=== PATIENT | female | born 1955 | race Caucasian/White ===

== ENCOUNTER 2024-09-28 22:02 | Observation (INO) | payer MEDICARE ==
[~2024-09-28] VITALS: Ht 162.6 cm; Wt 61.2 kg
[~2024-09-28 22:02] MED LIST: ASPI81CH PO; Budeprion Xl300 MG PO; C COMPLEX1000 M1 PO; ESCI20 PO; FENO145 PO; FISH OIL 1,2001 EAC7 PO; LEVSOD25 PO; LISI5 PO; LYLLANA TOP; MELO7.5 PO; METHYLPHENIDATE10 M4 PO; MONT10T PO; NUJO60 ML TOP; PROG100 PO; SYMBICORT 160-4.6 GM INH; TRAZ50 PO; Toviaz8 MG PO; VITAMIN B125000 MC1 PO; VITAMIN D325 MC3 PO; Ventolin/Prove6.7 GM INH
[2024-09-28 22:35] LABS: BASOPHILS ABSOLUTE AUTO 0.02 K/mm3 (0.00-0.23); BASOPHILS PERCENT AUTO 0 % (0-2); EOSINOPHILS ABSOLUTE AUTO 0.04 K/mm3 (0.00-0.68); EOSINOPHILS PERCENT AUTO 1 % (0-6); Hematocrit 40.9 % (33.0-51.0); Hemoglobin 13.4 g/dL (11.5-16.0); IMMATURE GRAN ABSOLUTE AUTO 0.02 K/mm3 (0.00-0.10); IMMATURE GRAN PERCENT AUTO 0 % (0-1); LYMPHOCYTES ABSOLUTE AUTO 0.74 K/mm3 (0.84-5.20); LYMPHOCYTES PERCENT AUTO 10 % (21-46); MONOCYTES ABSOLUTE AUTO 0.67 K/mm3 (0.16-1.47); MONOCYTES PERCENT AUTO 9 % (4-13); Mean Corpuscular HGB 29.5 pg (26.0-34.0); Mean Corpuscular HGB Conc 32.8 g/dL (31.5-36.5); Mean Corpuscular Volume 90 fL (80-100); Mean Platelet Volume 12.1 fL (9.1-12.4); NEUTROPHILS ABSOLUTE AUTO 6.09 K/mm3 (1.96-9.15); NEUTROPHILS PERCENT AUTO 80 % (41-73); Platelet Count 176 K/mm3 (150-400); RDW Coefficient Variation 14.4 % (11.7-14.2); RDW Standard Deviation 47.6 fL (35.1-46.3); Red Blood Cell Count 4.55 M/mm3 (3.80-5.20); White Blood Cell Count 7.58 K/mm3 (4.00-11.30)
[2024-09-28 22:48] LABS: Albumin, Blood 3.3 g/dL (3.4-5.0); Albumin/Globulin Ratio 0.7 (0.8-1.8); Bilirubin, Total 0.8 mg/dL (0.1-1.0); Bun/Creatinine Ratio 14.5 (12.0-20.0); Calcium, Blood 8.8 mg/dL (8.5-10.1); Creatinine, Blood 0.76 mg/dL (0.40-1.00); Globulin, Blood 4.5 g/dL (2.2-4.0); Potassium, Blood 3.7 mmol/L (3.5-5.5); Total Protein, Blood 7.8 g/dL (6.4-8.2)
[2024-09-28 23:37] LABS: Salicylate <1.7 mg/dL (2.8-20.0); Thyroid Stimulating Hormone 0.869 uIU/mL (0.360-4.800)
[2024-09-28 23:39] LABS: Acetaminophen, Random <2.0 ug/mL (10.0-30.0)
[2024-09-29] MEDS ORDERED: Haloperidol Lactate Inj. 5 MG/ML Injection IV ONE (01:00)
[2024-09-29] MEDS ORDERED: Midazolam HCl 1MG / ML 2ML Vial IV SCH (01:40)
[2024-09-29] MEDS ORDERED: Midazolam HCl 1MG / ML 2ML Vial IV ONE (02:00)
[2024-09-29 02:32] LABS: Source, Urine Clean Catch
[2024-09-29 02:41] LABS: Bilirubin, Urine Neg (Neg); Blood, Urine Neg (Neg); Glucose Qualitative, Urine Neg (Neg); Ketones, Urine Neg (Neg); Leukocyte Esterase, Urine Neg (Neg); Nitrite, Urine Neg (Neg); Protein, Urine Neg (Neg); Urobilinogen, Urine NORM (Normal)
[2024-09-29 02:43] LABS: Appearance, Urine Clear (Clear); Color, Urine Yellow (P-Yellow)
[2024-09-29 02:44] LABS: Base Excess Venous -0.2 mmol/L; Bicarbonate Venous 24.1 mmol/L (24.0-30.0); pH Blood Venous 7.38 (7.34-7.37)
[2024-09-29 03:09] LABS: U Amphetamine Screen Not Detected; U Barbituate Screen Not Detected; U Benzodiazapine Screen Not Detected; U Buprenorphine Screen Not Detected; U Cannabinoids Screen Not Detected; U Cocaine Screen Not Detected; U Methadone Screen Not Detected; U Methamphetamine Screen Not Detected; U Opiates Screen Not Detected; U Oxycodone Screen Not Detected; U Phencyclidine Screen Not Detected
[2024-09-29 12:47] VITALS: BP 132/78
== END 2024-09-29 23:00 | disposition home or self-care (01) ==
LOC: ER 22:02 → EOR 22:03 → ER 09-29 03:52 → EOR 09-29 03:52
PROVIDERS: ADMIT Emergency Medicine
DX: F39 Unspecified mood [affective] disorder (principal); M16.11 Unilateral primary osteoarthritis, right hip; R44.0 Auditory hallucinations; Z79.899 Other long term (current) drug therapy
CPT/HCPCS: 70470; 80053; 81003; 82803; 84443; 85025; 86592; 93005; 93010; 96374-59; 96375; 99285-25; G0378; G0480; J1630; J2250; Q9967